=== PATIENT | female | born 1985 | race Caucasian/White ===

== ENCOUNTER 2019-11-07 06:01 | Day surgery (SDC) | payer OTHER ==
[~2019-11-07] VITALS: Ht 170.2 cm; Wt 94.3 kg
[2019-11-07 06:08] VITALS: BP 120/75
[2019-11-07 13:41] VITALS: BP 119/73
== END 2019-11-07 12:15 | disposition home or self-care (01) ==
LOC: DS 06:01 → OR 08:30 → DS 12:15
DX: Z30.2 Encounter for sterilization (principal); E66.9 Obesity, unspecified; F17.210 Nicotine dependence, cigarettes, uncomplicated; Z98.890 Other specified postprocedural states; Z68.32 Body mass index [BMI] 32.0-32.9, adult; Z79.899 Other long term (current) drug therapy
CPT/HCPCS: J0690; J1170; J2175; J2250; J3010; J3490